=== PATIENT | female | born 1950 | race Native Hawaiian/Other Pacific Islander ===

== ENCOUNTER 2018-03-03 08:14 | Outpatient (CLI) | payer OTHER ==
[~2018-03-03 08:14] MED LIST: BENICAR20 MG PO; METFORMIN ER1000 MG PO; NOVOLIN 70/30 RELION SC; TRAM50TA PO
== END 2018-03-03 19:42 | disposition home or self-care (01) ==
LOC: LABW 08:14
DX: B35.1 Tinea unguium (principal)
CPT/HCPCS: 36415; 84450; 84460

== ENCOUNTER 2019-02-09 10:40 | Outpatient (CLI) | payer OTHER | END 2019-02-09 20:42 | disposition home or self-care (01) | LOC: RAD 10:40 | DX: M25.552 Pain in left hip (principal) ==

== ENCOUNTER 2019-05-24 07:19 | Outpatient (CLI) | payer OTHER ==
[2019-05-24 08:33] LABS: POTASSIUM 3.9 mmol/L (3.6-5.2)
[2019-05-24 09:25] LABS: PLATELET COUNT 201 K/uL (152-353)
== END 2019-05-24 19:42 | disposition home or self-care (01) ==
LOC: LABW 07:19
PROVIDERS: Internal Medicine
DX: E11.9 Type 2 diabetes mellitus without complications (principal)
CPT/HCPCS: 36415; 80053; 80061; 81000; 83036; 84439; 84443; 85027

== ENCOUNTER 2019-12-11 09:24 | Outpatient (CLI) | payer OTHER | END 2019-12-11 19:07 | disposition home or self-care (01) | LOC: LABW 09:24 | DX: D09.3 Carcinoma in situ of thyroid and other endocrine glands (principal) | CPT/HCPCS: 36415; 84443 ==

== ENCOUNTER 2020-01-23 08:36 | Outpatient (CLI) | payer OTHER | END 2020-01-23 21:45 | disposition home or self-care (01) | LOC: MAMMO 08:36 | DX: Z12.31 Encounter for screening mammogram for malignant neoplasm of breast (principal) ==

== ENCOUNTER 2020-03-06 08:59 | Outpatient (CLI) | payer OTHER | END 2020-03-06 19:17 | disposition home or self-care (01) | LOC: LAB 08:59 | DX: Z11.59 Encounter for screening for other viral diseases (principal) | CPT/HCPCS: 87635; G2023; U00003 ==

== ENCOUNTER 2021-12-08 09:57 | Outpatient (CLI) | payer OTHER ==
[2021-12-08 10:52] LABS: PLATELET COUNT 170 K/uL (152-353)
[2021-12-08 11:28] LABS: POTASSIUM 5.1 mmol/L (3.6-5.2)
== END 2021-12-08 19:01 | disposition home or self-care (01) ==
LOC: LABW 09:57
PROVIDERS: ATTEND Nurse Practitioner Family
DX: I10 Essential (primary) hypertension (principal); E11.9 Type 2 diabetes mellitus without complications; Z85.850 Personal history of malignant neoplasm of thyroid; C44.90 Unspecified malignant neoplasm of skin, unspecified; Z08 Encounter for follow-up examination after completed treatment for malignant neoplasm
CPT/HCPCS: 36415; 80053; 80061; 81000; 82043; 82306; 82570; 83036; 84439; 84443; 85027

== ENCOUNTER 2022-01-28 15:09 | Outpatient (CLI) | payer OTHER | END 2022-01-28 19:56 | disposition home or self-care (01) | LOC: RAD 15:09 | PROVIDERS: ATTEND Nurse Practitioner Family | DX: M54.89 Other dorsalgia (principal) ==

== ENCOUNTER 2022-08-25 11:25 | Emergency (ER) | payer OTHER ==
[~2022-08-25] VITALS: Ht 165.1 cm; Wt 84.8 kg
[2022-08-25 11:28] VITALS: TEMP 98.1
[2022-08-25 12:42] LABS: PLATELET COUNT 269 K/uL (152-353)
[2022-08-25 12:51] LABS: POTASSIUM 4.2 mmol/L (3.6-5.2)
[2022-08-25 13:00] LABS: PARTIAL THROMBOPLASTIN TIME 28.8 SECONDS (24.5-33.6)
[2022-08-25 16:00] VITALS: BP 144/54
== END 2022-08-25 16:50 | disposition short-term general hospital (02) ==
LOC: ED 11:25
PROVIDERS: Emergency Medicine
DX: E11.621 Type 2 diabetes mellitus with foot ulcer (principal); E11.52 Type 2 diabetes mellitus with diabetic peripheral angiopathy with gangrene; I96 Gangrene, not elsewhere classified; E11.22 Type 2 diabetes mellitus with diabetic chronic kidney disease; N18.9 Chronic kidney disease, unspecified; Z79.84 Long term (current) use of oral hypoglycemic drugs; Z79.4 Long term (current) use of insulin; Z11.52 Encounter for screening for COVID-19
CPT/HCPCS: 36415; 80053; 81002; 84484; 85027; 85610; 85730; 87040; 87635; 93005; 96365; 96366; 96367; 99284; J1956; J3370; U0003

== ENCOUNTER 2022-09-02 14:28 | Inpatient (IN) | payer OTHER | END 2022-09-08 08:55 | disposition still patient (30) | LOC: PAVB 14:28 | PROVIDERS: ADMIT Internal Medicine Endocrinology, Diabetes & Metabolism; ATTEND Internal Medicine Endocrinology, Diabetes & Metabolism | DX: I96 Gangrene, not elsewhere classified (principal); Z89.432 Acquired absence of left foot; M86.9 Osteomyelitis, unspecified; M62.81 Muscle weakness (generalized); R26.81 Unsteadiness on feet; Z74.1 Need for assistance with personal care | CPT/HCPCS: 87077; 87081; 87186 ==

== ENCOUNTER 2022-09-14 11:24 | Emergency (ER) | payer OTHER ==
[~2022-09-14] VITALS: Ht 165.1 cm; Wt 84.8 kg
[2022-09-14 11:24] VITALS: BP 162/64; TEMP 97.6
[2022-09-14 12:07] LABS: POTASSIUM 4.8 mmol/L (3.6-5.2)
[2022-09-14 12:12] LABS: PLATELET COUNT 297 K/uL (152-353)
[2022-09-14 12:13] LABS: PARTIAL THROMBOPLASTIN TIME 29.1 SECONDS (24.5-33.6)
== END 2022-09-14 14:04 | disposition short-term general hospital (02) ==
LOC: ED 11:24
PROVIDERS: Emergency Medicine
DX: Z89.432 Acquired absence of left foot (principal); E11.9 Type 2 diabetes mellitus without complications; Z79.4 Long term (current) use of insulin; Z11.52 Encounter for screening for COVID-19; I50.9 Heart failure, unspecified
CPT/HCPCS: 80053; 83605; 85027; 85610; 85730; 87635; 99283; U0003

== ENCOUNTER 2022-10-19 10:51 | Observation (INO) | payer OTHER ==
[2022-10-19] VITALS (10 sets, daily range): BP systolic 120–135; BP diastolic 35–47; TEMP 98.2–99.5; Ht 165.1 cm; Wt 88.5 kg
[~2022-10-19] VITALS: Ht 165.1 cm; Wt 88.5 kg
[~2022-10-19 10:51] MED LIST changes: +LEVOFLOXACIN500 MG PO
[2022-10-19 11:18] LABS: PLATELET COUNT 275 K/uL (152-353)
[2022-10-19 11:27] LABS: POTASSIUM 4.6 mmol/L (3.6-5.2)
[2022-10-19 11:41] LABS: PARTIAL THROMBOPLASTIN TIME 25.8 SECONDS (24.5-33.6)
[2022-10-19] MEDS ORDERED: OXYC5TAB53 PO (16:22)
[2022-10-19] MEDS ORDERED: GLIMEPIRIDE PO (16:23)
[2022-10-19] MEDS ORDERED: CHLORTHALID25 MG PO (16:23)
[2022-10-19] MEDS ORDERED: LEVO-T137 MCG PO (16:23)
[2022-10-19] MEDS ORDERED: HUMALOG KW100 UNIT/M SC (16:24)
[2022-10-19] MEDS ORDERED: LISI10TA11 PO (16:24)
[2022-10-19] MEDS ORDERED: OMEP40CA PO (16:25)
[2022-10-19] MEDS ORDERED: PREVAGEN10 MG PO (16:25)
[2022-10-19] MEDS ORDERED: HEALTHY EYE1 PO (16:26)
[2022-10-20] VITALS (7 sets, daily range): BP systolic 120–157; BP diastolic 45–70; TEMP 97.9–98.6
[2022-10-20 05:21] LABS: PLATELET COUNT 241 K/uL (152-353)
[2022-10-20 05:27] LABS: POTASSIUM 4.4 mmol/L (3.6-5.2)
== END 2022-10-20 12:32 | disposition short-term general hospital (02) ==
LOC: ED 10:51 → MED/SURG 14:00
PROVIDERS: ADMIT Emergency Medicine; ATTEND Internal Medicine
PROC: 30233N1 Transfusion of Nonautologous Red Blood Cells into Peripheral Vein, Percutaneous Approach (ICD-10-PCS; principal; 2022-10-19)
DX: I13.0 Hypertensive heart and chronic kidney disease with heart failure and stage 1 through stage 4 chronic kidney disease, or unspecified chronic kidney disease (principal); E11.22 Type 2 diabetes mellitus with diabetic chronic kidney disease; E11.65 Type 2 diabetes mellitus with hyperglycemia; N18.32 Chronic kidney disease, stage 3b; I50.9 Heart failure, unspecified; D64.89 Other specified anemias; R06.02 Shortness of breath; E03.8 Other specified hypothyroidism; J45.998 Other asthma; K21.9 Gastro-esophageal reflux disease without esophagitis; E46 Unspecified protein-calorie malnutrition; I73.89 Other specified peripheral vascular diseases; E78.49 Other hyperlipidemia; I25.2 Old myocardial infarction; E83.42 Hypomagnesemia; Z89.432 Acquired absence of left foot; T81.89XA Other complications of procedures, not elsewhere classified, initial encounter; Y83.5 Amputation of limb(s) as the cause of abnormal reaction of the patient, or of later complication, without mention of misadventure at the time of the procedure; Y92.89 Other specified places as the place of occurrence of the external cause
CPT/HCPCS: 36415; 36430; 80053; 82272; 82607; 82728; 82747; 82948; 83540; 83550; 83735; 83880; 84439; 84443; 84466; 84484; 85027; 85379; 85610; 85730; 86850; 86900; 86901; 86922; 87502; 87635; 93005; 96367; 96372; 96374; 96375; 99220; 99284; A9540; A9567; G0378; J1650; J1815; J1940; J2405; P9016; U0003